=== PATIENT | female | born 1990 | race African-American/Black ===

== ENCOUNTER 2025-02-06 15:47 | Emergency (ER) | payer BC, MEDICAID ==
[~2025-02-06] VITALS: Ht 162.6 cm; Wt 77.0 kg
[2025-02-06 15:50] VITALS: TEMP 36.6; O2SAT 100
[2025-02-06] MEDS ORDERED: MORPHINE SULFATE 2 MG/ML INJ (NOT FOR IM USE) IV ONE (16:15)
[2025-02-06 16:36] LABS: BASOPHILS % 0.3 % (0.0-2.0); EOSINOPHILS % 0.1 % (0.0-5.0); HEMATOCRIT. 35.4 % (36.0-48.0); HEMOGLOBIN. 11.8 g/dL (12.0-16.0); LYMPHOCYTES % 9.1 % (20.0-50.0); MEAN PLATELET VOLUME 9.9 fl (7.4-10.4); MONOCYTES % 6.5 % (2.0-8.0); NEUTROPHILS % 84.0 % (40.0-76.0); PLATELET 172 x1000/uL (130-400); RED BLOOD CELL COUNT 3.47 mill/uL (4.2-5.4); RED CELL DISTRIBUTION WIDTH 12.7 % (11.6-14.6)
[2025-02-06] MEDS: SODIUM CHLORIDE 0.9% 1,000 ML IV ONE ×2 (16:36→18:12)
[2025-02-06] MEDS: FAMOTIDINE 20MG/2ML VIAL IV ONE (16:40)
[2025-02-06] MEDS: ONDANSETRON HCL 4MG/2ML INJ IV ONE (16:40)
[2025-02-06 16:52] LABS: CREATININE 0.5 mg/dL (0.6-1.0)
[2025-02-06 16:53] LABS: UREA NITROGEN BLOOD 7 mg/dL (9-23)
[2025-02-06 16:54] LABS: ASPARTATE AMINOTRANSFERASE 24 IU/L (<34)
[2025-02-06 16:55] LABS: BILIRUBIN DIRECT 0.4 mg/dL (<=3.0); BILIRUBIN TOTAL 1.0 mg/dL (0.1-1.0); PROTEIN TOTAL 6.5 g/dL (6.0-8.3)
[2025-02-06] MEDS: MORPHINE SULFATE 4 MG/ML INJ (FOR IV/IM USE) IV SCH (16:57)
[2025-02-06 17:06] LABS: B-HCG QUANTITATIVE 23666 mIU/mL (<6)
[2025-02-06 19:00] LABS: CLARITY URINE CLEAR (CLEAR); COLOR URINE YELLOW (YELLOW); GLUCOSE URINE NEGATIVE (NEGATIVE); KETONES URINE 1+ (NEGATIVE); LEUKOCYTE ESTERASE URINE NEGATIVE (NEGATIVE); NITRITE URINE POSITIVE (NEGATIVE); OCCULT BLOOD URINE TRACE (NEGATIVE); PH URINE 5.5 (4.5-8.0); PROTEIN URINE TRACE (NEGATIVE); SPECIFIC GRAVITY URINE 1.012 (1.005-1.030); UROBILINOGEN URINE 0.2 E.U./dL (0.2-1.0)
[2025-02-06 19:11] LABS: *AMPHETAMINES SCREEN URINE NEGATIVE (NEGATIVE); *BARBITURATES SCREEN URINE NEGATIVE (NEGATIVE); *BENZODIAZEPINES SCREEN URINE NEGATIVE (NEGATIVE); *COCAINE SCREEN URINE NEGATIVE (NEGATIVE); METHADONE URINE SCREEN NEGATIVE (NEGATIVE)
[2025-02-06 19:12] LABS: CANNABINOID URINE SCREEN NEGATIVE (NEGATIVE); ECSTASY MDMA SCREEN URINE NEGATIVE (NEGATIVE); OPIATES URINE SCREEN PRESUMPTIVE POSITIVE (NEGATIVE); PHENCYCLIDINE URINE SCREEN NEGATIVE (NEGATIVE)
[2025-02-06 19:22] LABS: BACTERIA URINE 2+; SQUAMOUS EPITHELIAL CELL URINE FEW /lpf (RARE/1+)
[2025-02-06] MEDS ORDERED: ACET-2708 MT (20:17)
[2025-02-06] MEDS ORDERED: CEPH500C2 MT (20:17)
[2025-02-06] MEDS ORDERED: ONDA-239 PO (20:17)
[2025-02-06 20:41] VITALS: BP 100/66; PULSE 74; RESP 16; O2SAT 100
[2025-02-06] MEDS ORDERED: NAPR-681 MT (21:01)
[2025-02-06] MEDS ORDERED: IOHEXOL-300 100 ML BOTTLE ONE (22:32)
== END 2025-02-06 21:08 | disposition home or self-care (01) ==
LOC: ER 16:02 → CMPBEDREQ 02-07 08:00
DX: N39.0 Urinary tract infection, site not specified (principal); R11.10 Vomiting, unspecified; Z79.899 Other long term (current) drug therapy; Z98.890 Other specified postprocedural states
CPT/HCPCS: 99285; 74177; 96374; 76801; 96361; 96375; 80076; 80305; 80048; 84702; 83690; 83735; 85025; 36415; 76817; 81003; Q9967; J1308; J2405; J2270; J7030